=== PATIENT | female | born 1985 | race Caucasian/White ===

== ENCOUNTER 2017-04-27 17:22 | Emergency (ER) | payer BC ==
[2017-04-27 17:43] VITALS: BP 107/61
--- NOTE | 2017-04-27 17:54 | UC ---
Bite Injury/Animal HPI - HPI Summary HPI Summary: complaint of mouse bite on right index finger this morning her cat caught the mouse and she was saving it from her cat and it bit her finger feels slightly swollen and mildy painful hasn't taken any medication for pain washed wound with hydrogen peroxide - History of Current Complaint Chief Complaint: UCBiteInjury Stated Complaint: MOUSE BITE- RT HAND Time Seen by Provider: 04/27/17 17:45 Hx Obtained From: Patient Hx Last Menstrual Period: 04/13/17 - Allergies/Home Medications Allergies/Adverse Reactions: Allergies Allergy/AdvReac Type Severity Reaction Status Date / Time Penicillins Allergy Hives Verified 04/27/17 17:29 seasonal Allergy Congestion Uncoded 04/27/17 17:29 Home Medications: Home Medications Vitamins 1 tab DAILY 04/27/17 [History Confirmed 04/27/17] PMH/Surg Hx/FS Hx/Imm Hx Previously Healthy: Yes - Surgical History Surgical History: Yes Surgery Procedure, Year, and Place: 2002 oral x 2 - Family History Known Family History: Positive: Hypertension - father Negative: Cardiac Disease, Diabetes - Social History Occupation: Employed Full-time Lives: With Family Alcohol Use: Rare Substance Use Type: None Smoking Status (MU): Never Smoked Tobacco - Immunization History Most Recent Influenza Vaccination: 2016 Most Recent Tetanus Shot: UTD Review of Systems Constitutional: Negative Skin: Other Eyes: Negative ENT: Negative Respiratory: Negative Cardiovascular: Negative Gastrointestinal: Negative Genitourinary: Negative Motor: Negative Neurovascular: Negative Musculoskeletal: Negative Neurological: Negative Psychological: Negative All Other Systems Reviewed And Are Negative: Yes Physical Exam Triage Information Reviewed: Yes Appearance: No Pain Distress, Well-Nourished Vital Signs: Initial Vital Signs Temp 99 F 04/27/17 17:31 Pulse 66 04/27/17 17:31 Resp 16 04/27/17 17:31 BP 107/61 04/27/17 17:31 Pulse Ox 100 04/27/17 17:31 Vital Signs Reviewed: Yes Eyes: Positive: Conjunctiva Clear ENT: Positive: Pharynx normal, TMs normal Neck: Positive: No Lymphadenopathy Respiratory: Positive: Lungs clear, Normal breath sounds, No respiratory distress Cardiovascular: Positive: RRR, No Murmur, Pulses Normal Musculoskeletal: Positive: No Edema Neurological: Positive: Alert Psychological Exam: Normal Skin: Positive: Other - right index finger - tiny puncture wounds /edema on end of finger, Bite Injury Course/Dx - Course Course Of Treatment: exam completed. will ttreat with clindamycin and bactrim as advised by -up to date for patients with penicillin allergy. UTD on tetanus. no need for rabies prophylaxis - Differential Dx/Diagnosis Differential Diagnosis/HQI/PQRI: Puncture, Other - animal bite Provider Diagnoses: mouse bite right index finger Discharge - Discharge Plan Condition: Stable Disposition: HOME Prescriptions: Clindamycin Cap(NF) [Clindamycin Cap 300 mg Cap(NF)] 300 mg PO TID #21 cap Sulfamethox/Trimethoprim DS* [Bactrim DS 800/160 TAB*] 1 tab PO BID #14 tab Patient Education Materials: Animal Bite (ED) Referrals: No Primary Care Phys,NOPCP [Primary Care Provider] - [facility] [Outside] Additional Instructions: Please start antibiotic as directed Increase fluids and rest Take acetaminophen or ibuprofen for fever or pain Please review your discharge instructions. If your symptoms do not improve please call your primary care provider or return to urgent care.
== END 2017-04-27 18:28 | disposition home or self-care (01) ==
LOC: UCCORT 17:22
DX: S61.230A Puncture wound without foreign body of right index finger without damage to nail, initial encounter (principal); W53.01XA Bitten by mouse, initial encounter; Y93.9 Activity, unspecified; Y92.9 Unspecified place or not applicable; Z88.0 Allergy status to penicillin
CPT/HCPCS: 99202; G0463

== ENCOUNTER 2017-06-08 10:34 | Emergency (ER) | payer BC ==
[2017-06-08 11:47] VITALS: BP 115/60
--- NOTE | 2017-06-08 12:05 | UC ---
UC General HPI - HPI Summary HPI Summary: 32 year old female with diarrhea. she states that her stools have not been normal for the last 9 days. they are either very loose or liquid. she denies pain, N/V. She does have a lot of gas, bloating and rumbling in her stomach after she eats and has explosive stools. She says the stool is dark brown and odorless. She thinks it looks stringy. About a month ago she was treated with ABX for a mouse bite. She is concerned that she could have Cdiff. Priscila have a similar experience about 10 years ago and was told it was colitis. [ End ] - History of Current Complaint Chief Complaint: UCGI Stated Complaint: DIARRHEA X 1 WEEK Time Seen by Provider: 06/08/17 11:55 Hx Last Menstrual Period: 04/27/17 Onset/Duration: Sudden Onset Timing: Constant Onset Severity: Mild - Allergy/Home Medications Allergies/Adverse Reactions: Allergies Allergy/AdvReac Type Severity Reaction Status Date / Time Penicillins Allergy Hives Verified 06/08/17 11:47 seasonal Allergy Congestion Uncoded 06/08/17 11:47 PMH/Surg Hx/FS Hx/Imm Hx Previously Healthy: Yes - Surgical History Surgical History: Yes Surgery Procedure, Year, and Place: 2002 oral x 2 - Family History Known Family History: Positive: Hypertension - father Negative: Cardiac Disease, Diabetes - Social History Occupation: Employed Full-time Lives: With Family Alcohol Use: None Substance Use Type: None Smoking Status (MU): Never Smoked Tobacco - Immunization History Most Recent Influenza Vaccination: 2015 Most Recent Tetanus Shot: UTD Review of Systems Gastrointestinal: Diarrhea All Other Systems Reviewed And Are Negative: Yes Physical Exam Triage Information Reviewed: Yes Appearance: Well-Appearing, No Pain Distress, Well-Nourished Vital Signs: Initial Vital Signs Temp 98.4 F 06/08/17 11:42 Pulse 59 06/08/17 11:42 Resp 16 06/08/17 11:42 BP 115/60 06/08/17 11:42 Pulse Ox 100 06/08/17 11:42 Vital Signs Reviewed: Yes Eye Exam: Normal ENT Exam: Normal Dental Exam: Normal Neck exam: Normal Neck: Positive: 1 Respiratory Exam: Normal Cardiovascular Exam: Normal Abdominal Exam: Normal Abdomen Description: Positive: Nontender, No Organomegaly, Soft. Negative: CVA Tenderness (R), CVA Tenderness (L), Distended, Guarding Musculoskeletal Exam: Normal Neurological Exam: Normal Psychological Exam: Normal Skin Exam: Normal Course/Dx - Course Course Of Treatment: check for infection and treat if needed and f/u with pcp. if neg work up consider immodium . encouraged PO intake - Differential Dx - Multi-Symptom Provider Diagnoses: diarrhea Discharge - Discharge Plan Condition: Good Disposition: HOME Patient Education Materials: Acute Diarrhea (ED)
== END 2017-06-08 12:48 | disposition home or self-care (01) ==
LOC: UCCORT 10:34
DX: R19.7 Diarrhea, unspecified (principal); Z88.0 Allergy status to penicillin
CPT/HCPCS: 87045; 87046; 87328; 87329; 87493; 87899; 99211; G0463

== ENCOUNTER 2017-06-17 17:33 | Emergency (ER) | payer BC ==
[2017-06-17 17:49] VITALS: BP 109/55
--- NOTE | 2017-06-17 18:35 | RAD ---
INDICATION: Abdominal pain pain. Constipation. COMPARISON: None TECHNIQUE: A single view of the abdomen is submitted. FINDINGS: Bones: There are no acute bony findings. Soft tissues: The soft tissues appear normal. The psoas margins are sharp. Bowel gas pattern: Nondiagnostic . There is moderate stool. Calcifications: There are no abnormal calcifications. Other: None IMPRESSION: NONDIAGNOSTIC BOWEL GAS PATTERN. MODERATE STOOL.
--- NOTE | 2017-06-17 18:52 | UC ---
Abdominal Pain Female HPI - HPI Summary HPI Summary: abdominal discomfort x 2 weeks started with diarrhea for few days , was seen at the urgent care and her pcp . Dx with viral illness, diarrhea has improved but now she is very gassy and not passing gas nor stool mild abdominal pain , no fever, no chills, no nausea or vomiting - History of Current Complaint Chief Complaint: UCGI Stated Complaint: BLOATING,CRAMPING,NO BM X4DAYS Time Seen by Provider: 06/17/17 17:53 Hx Obtained From: Patient Hx Last Menstrual Period: 04/27/17 ?: No Onset/Duration: Gradual Onset, Lasting Weeks - 2, Still Present Timing: Constant Severity Initially: Moderate Severity Currently: Moderate Location: Diffuse Radiates: No Character: Cramping Aggravating Factor(s): Food Alleviating Factor(s): Nothing Associated Signs and Symptoms: Positive: Constipation, Diarrhea. Negative: Diaphoresis, Fever, Chest Pain, Dizzy, Back Pain, Blood in Stool, Urinary Symptoms, Decreased Appetite, Vaginal Bleeding, Vaginal Discharge, Nausea, Vomiting Allergies/Adverse Reactions: Allergies Allergy/AdvReac Type Severity Reaction Status Date / Time Penicillins Allergy Hives Verified 06/17/17 17:49 seasonal Allergy Congestion Uncoded 06/17/17 17:49 Home Medications: Home Medications Multivitamins/Minerals TAB* [Thera M Plus TAB*] 1 tab PO DAILY 06/17/17 [ History Confirmed 06/17/17] PMH/Surg Hx/FS Hx/Imm Hx Previously Healthy: Yes - Surgical History Surgical History: Yes Surgery Procedure, Year, and Place: 2002 oral x 2 - Family History Known Family History: Positive: Hypertension - father Negative: Cardiac Disease, Diabetes - Social History Alcohol Use: None Substance Use Type: None Smoking Status (MU): Never Smoked Tobacco - Immunization History Most Recent Influenza Vaccination: 2016 Most Recent Tetanus Shot: UTD Review of Systems Constitutional: Negative Skin: Negative Eyes: Negative, Diplopia Respiratory: Negative Gastrointestinal: Abdominal Pain Is Patient Immunocompromised?: No All Other Systems Reviewed And Are Negative: Yes Physical Exam Triage Information Reviewed: Yes Appearance: Well-Appearing, No Pain Distress, Well-Nourished Vital Signs: Initial Vital Signs Temp 98.6 F 06/17/17 17:43 Pulse 50 06/17/17 17:43 Resp 14 06/17/17 17:43 BP 109/55 06/17/17 17:43 Pulse Ox 100 06/17/17 17:43 Vital Signs Reviewed: Yes Eyes: Positive: Conjunctiva Clear ENT Exam: Normal ENT: Positive: Normal ENT inspection, Hearing grossly normal, Pharynx normal Neck exam: Normal Neck: Positive: Supple, Nontender, No Lymphadenopathy Respiratory: Positive: Chest non-tender, Lungs clear, Normal breath sounds, No respiratory distress Cardiovascular: Positive: RRR, No Murmur, Pulses Normal Abdomen Description: Positive: Nontender, No Organomegaly, Soft Bowel Sounds: Positive: Present Musculoskeletal Exam: Normal Skin Exam: Normal Abd Pain Female Course/Dx - Differential Dx/Diagnosis Provider Diagnoses: abdominal pain. constipation Discharge - Discharge Plan Condition: Stable Disposition: HOME Patient Education Materials: Constipation (ED), Abdominal Pain (ED) Referrals: Kyra Lorenzo MD [Primary Care Provider] - 7 Days Additional Instructions: increase fluid, increase fiber, may take Mirilax daily x 7 days will check cbc, cmp, amylase and lipase, tsh call the office on Monday for the lab results
[2017-06-18 13:45] LABS: Hematocrit 38 % (35-47); Hemoglobin 13.2 g/dl (12.0-16.0); Mean Corpuscular HGB Conc 34 g/dl (31-36); Mean Corpuscular Hemoglobin 31 pg (27-31); Mean Corpuscular Volume 90 fL (80-97); Mean Platelet Volume 10 um3 (7.4-10.4); Red Blood Count 4.29 10^6/ul (4.0-5.4); Red Cell Distribution Width 12 % (10.5-15); White Blood Count 5.9 10^3/ul (3.5-10.8)
[2017-06-18 13:59] LABS: Albumin 4.7 g/dL (3.2-5.2); BUN/Creatinine Ratio 7.3 (8-20); EGFR African American 103.9 (>60); EGFR Non-African American 80.8 (>60); Total Bilirubin 0.8 mg/dL (0.2-1.0); Total Protein 7.7 g/dL (6.4-8.9)
[2017-06-18 14:11] LABS: TSH (Thyroid Stimulating Horm) 0.56 mcIU/mL (0.34-5.60)
--- NOTE | 2017-06-19 08:32 | UC ---
Progress - Progress Note Progress Note: call patient. cbc/cmp/tsh (-). if worse f/u pcp/er.
== END 2017-06-17 18:55 | disposition home or self-care (01) ==
LOC: UCCORT 17:33
DX: R10.84 Generalized abdominal pain (principal); K59.00 Constipation, unspecified; Z88.0 Allergy status to penicillin
CPT/HCPCS: 36415; 74000; 80053; 82150; 83690; 84443; 85025; 99211; G0463

== ENCOUNTER 2019-08-05 08:49 | Emergency (ER) | payer BC ==
[2019-08-05 09:15] VITALS: BP 102/71
--- NOTE | 2019-08-05 09:35 | UC ---
Throat Pain/Nasal [place]oy HPI - HPI Summary HPI Summary: 34-year-old female who has had cold symptoms and head congestion for more than one week and the past 2 days she's had sinus congestion, sinus pain and postnasal drainage. - History of Current Complaint Chief Complaint: UCGeneralIllness Stated Complaint: UPPER RESPIRATORY CONCERN Time Seen by Provider: 08/05/19 09:16 Hx Obtained From: Patient Hx Last Menstrual Period: 07/07/19 ?: No Onset/Duration: Gradual Onset Severity: Mild Pain Intensity: 5 Cough: Nonproductive Associated Signs & Symptoms: Positive: Sinus Discomfort, Nasal Discharge - Allergies/Home Medications Allergies/Adverse Reactions: Allergies Allergy/AdvReac Type Severity Reaction Status Date / Time Penicillins Allergy Hives Verified 08/05/19 09:11 seasonal Allergy Congestion Uncoded 06/17/17 17:49 PMH/Surg Hx/FS Hx/Imm Hx Previously Healthy: Yes - Surgical History Surgical History: Yes Surgery Procedure, Year, and Place: 2002 oral x 2 - Family History Known Family History: Positive: Hypertension - father Negative: Cardiac Disease, Diabetes - Social History Lives: With Family Alcohol Use: None Substance Use Type: None Smoking Status (MU): Never Smoked Tobacco - Immunization History Most Recent Influenza Vaccination: 2016 Most Recent Tetanus Shot: UTD Review of Systems All Other Systems Reviewed And Are Negative: Yes ENT: Positive: Nasal Discharge, Sinus Congestion, Sinus Pain/Tenderness Respiratory: Positive: Cough - Nonproductive cough. Is Patient Immunocompromised?: No Physical Exam Triage Information Reviewed: Yes Appearance: Well-Appearing, No Pain Distress, Well-Nourished, Other: - Mildly ill-appearing. Vital Signs: Initial Vital Signs Temp 98.3 F 08/05/19 09:10 Pulse 86 08/05/19 09:10 Resp 16 08/05/19 09:10 BP 102/71 08/05/19 09:10 Pulse Ox 99 08/05/19 09:10 Vital Signs Reviewed: Yes Eyes: Positive: Conjunctiva Clear ENT: Positive: Hearing grossly normal, Pharynx normal - Yellow purulent postnasal drainage., Nasal congestion, Nasal drainage - Yellow purulent nasal coryza., TM red - Right tympanic membrane is mildly injected but with good land krishna and light reflex, left tympanic membrane is pearly-watson with good land krishna and light reflex., Sinus tenderness - Tenderness over the maxillary and frontal sinuses., Uvula midline Neck: Positive: Supple, Nontender, No Lymphadenopathy Respiratory: Positive: Lungs clear, Normal breath sounds, No respiratory distress, No accessory muscle use Cardiovascular: Positive: RRR, No Murmur, Pulses Normal, Brisk Capillary Refill Musculoskeletal Exam: Normal Neurological Exam: Normal Psychological Exam: Normal Skin Exam: Normal Throat Pain/Nasal Course/Dx - Course Course Of Treatment: Patient is comfortable here. She is to increase fluids and follow-up with her primary care provider if no improvement. She may take probiotics with her doxycycline. - Differential Dx/Diagnosis Provider Diagnosis: Sinusitis Discharge ED - Sign-Out/Discharge Documenting (check all that apply): Patient Departure All imaging exams completed and their final reports reviewed: No Studies - Discharge Plan Condition: Fair Disposition: HOME Prescriptions: DOXYcycline CAP(*) [DOXYcycline 100MG CAP(*)] 100 mg PO BID 10 Days #20 cap Patient Education Materials: Sinusitis (ED) Forms: *Work Release Referrals: Kyra Lorenzo MD [Primary Care Provider] - Additional Instructions: Increase fluids, no antacids, multivitamins, dairy products 2 hours before you take doxycycline or 2 hours after you take it however take it with food. Definite follow-up with your primary care provider in 4- 5 days if no improvement. - Billing Disposition and Condition Condition: FAIR Disposition: Home
== END 2019-08-05 09:36 | disposition home or self-care (01) ==
LOC: UCCORT 08:49
DX: J32.9 Chronic sinusitis, unspecified (principal); Z88.0 Allergy status to penicillin; Z91.09 Other allergy status, other than to drugs and biological substances
CPT/HCPCS: 99212; G0463

== ENCOUNTER 2019-11-11 11:34 | Emergency (ER) | payer BC ==
--- NOTE | 2019-11-11 12:25 | ED ---
GI/ HPI - HPI Summary HPI Summary: The patient is a 34-year-old female presenting to [facility] emergency department accompanied by mother with a chief complaint of nausea, diarrhea, and lower left -sided abdominal pain onset yesterday afternoon. She reports that one week ago, she finished a three-week liver detox which included herbal supplements for fiber and protein, vegetables, and fruits, as prescribed by her alternative medicine provider. Over the last week, she has been feeling well as she has returned to her normal diet until yesterday afternoon when she began to feel nauseous. Last night, she had soft stools with an episode of about three tablespoons of blood and subsequent spotting. Throughout the night, she continued to experience nausea, but the diarrhea with blood has resolved with a small normal bowel movement this morning. She spoke with her primary care provider this morning and was referred to come here for lab work. On her way into the emergency department, she experienced approximately 5 minutes of sharp left lower quadrant pain that completely subsided. Symptoms are currently rated 3/10 in severity but were rated 8/10 in severity last night. She has not taken any medications for treatment prior to arrival. She denies any fevers or chills. She notes that she follows with a nailing machine operator automatic for IBS, and she has an appointment on 12/11/2019. Past medical history significant for lactose intolerance, celiac disease, colitis, Raynauds, heart murmur. Nonsmoker, occasional alcohol use, no substance use. Medications reviewed. Allergies noted. Home Medications Medication Instructions Recorded Confirmed Type Multivitamins/Minerals TAB* [Thera 1 tab PO DAILY 06/17/17 11/11/19 History M Plus TAB*] Cholecalciferol TAB* [Vitamin D 1,000 unit PO DAILY 11/11/19 11/11/19 History TAB*] Turmeric 400 mg PO DAILY 11/11/19 11/11/19 History - History of Current Complaint Chief Complaint: EDNauseaVomitDiarrh Time Seen by Provider: 11/11/19 12:05 Stated Complaint: ABD PAIN, BLOOD IN STOOL Hx Obtained From: Patient Hx Last Menstrual Period: 07/07/19 Onset/Duration: Started Hours Ago, Still Present - nausea, Resolved - abdominal pain, diarrhea, blood in stool Timing: Lasting Hours Severity: Severe Current Severity: Mild Pain Intensity: 3 Location of Pain: LLQ Pain Characteristics: Sharp Associated Signs and Symptoms: Positive: Nausea, Blood w/Stool, Diarrhea, Abdominal Pain. Negative: Fever, Chills Aggravating Factor(s): Nothing Alleviating Factor(s): Nothing - Allergy/Home Medications Allergies/Adverse Reactions: Allergies Allergy/AdvReac Type Severity Reaction Status Date / Time Penicillins Allergy Hives Verified 11/11/19 11:42 seasonal Allergy Congestion Uncoded 11/11/19 11:42 Home Medications: Home Medications Multivitamins/Minerals TAB* [Thera M Plus TAB*] 1 tab PO DAILY 06/17/17 [ History Confirmed 11/11/19] Cholecalciferol TAB* [Vitamin D TAB*] 1,000 unit PO DAILY 11/11/19 [History Confirmed 11/11/19] Turmeric 400 mg PO DAILY 11/11/19 [History Confirmed 11/11/19] PMH/Surg Hx/FS Hx/Imm Hx Endocrine/Hematology History: Reports: Other Endocrine/Hematological Disorders - Raynaud's Denies: Hx Diabetes Cardiovascular History: Denies: Hx Hypertension GI History: Reports: Hx Irritable Bowel, Other GI Disorders - colitis History: Denies: Hx Renal Disease - Surgical History Surgical History: Yes Surgery Procedure, Year, and Place: 2002 oral x 2 Infectious Disease History: No Infectious Disease History: Denies: Traveled Outside the [place] in Last 30 Days - Family History Known Family History: Positive: Hypertension - father Negative: Cardiac Disease, Diabetes - Social History Alcohol Use: Occasionally Hx Substance Use: No Substance Use Type: Reports: None Hx Tobacco Use: No Smoking Status (MU): Never Smoked Tobacco Review of Systems Negative: Fever, Chills Positive: Abdominal Pain - LLQ, Diarrhea, Nausea, Other - blood in stool All Other Systems Reviewed And Are Negative: Yes Physical Exam - Summary Physical Exam Summary: Appearance: The patient is well-nourished in no acute distress and in no acute pain. Skin: The skin is warm and dry, and skin color reflects adequate perfusion. HEENT: The head is normocephalic and atraumatic. The pupils are equal and reactive. The conjunctivae are clear and without drainage. Nares are patent and without drainage. Mouth reveals moist mucous membranes, and the throat is without erythema and exudate. The external ears are intact. The ear canals are patent and without drainage. The tympanic membranes are intact. Neck: The neck is supple with full range of motion and non-tender. There are no carotid bruits. There is no neck vein distension. Respiratory: Chest is non-tender. Lungs are clear to auscultation and breath sounds are symmetrical and equal. Cardiovascular: Heart is regular rate and rhythm. There is no murmur or rub auscultated. There is no peripheral edema and pulses are symmetrical and equal. Abdomen: The abdomen is soft with mild tenderness in the bilateral left upper and lower quadrants. There are normal bowel sounds heard in all four quadrants and there is no organomegaly palpated. Musculoskeletal: There is no back tenderness noted. Extremities are non-tender with full range of motion. There is good capillary refill. There is no peripheral edema or calf tenderness elicited. Neurological: Patient is alert and oriented to person, place and time. The patient has symmetrical motor strength in all four extremities. Cranial nerves are grossly intact. Deep tendon reflexes are symmetrical and equal in all four extremities. Psychiatric: The patient has an appropriate affect and does not exhibit any anxiety or depression. Triage Information Reviewed: Yes Vital Signs On Initial Exam: Initial Vitals Temp Pulse Resp BP Pulse Ox 98.3 F 53 19 125/68 98 11/11/19 11:37 11/11/19 11:37 11/11/19 11:37 11/11/19 11:37 11/11/19 11:37 Vital Signs Reviewed: Yes Procedures - Sedation Patient Received Moderate/Deep Sedation with Procedure: No Diagnostics - Vital Signs Vital Signs Temp Pulse Resp BP Pulse Ox 11/11/19 11:37 98.3 F 53 19 125/68 98 - Laboratory Result Diagrams: 11/11/19 12:42 11/11/19 12:42 Lab Statement: Any lab studies that have been ordered have been reviewed, and results considered in the medical decision making process. Re-Evaluation - Re-Evaluation First Eval Re-Evaluation Time: 14:25 Comment: We discussed all results and plan for discharge. GIGU Course/Dx - Course Course Of Treatment: Ms. Jeff's labs were normal as were her vitals. She likely has some irritation after the reintroduction of foods at the end of her elimination diet. She is in no acute danger and I will let her GI doc's figure this out. - Diagnoses Provider Diagnoses: Abdominal pain Discharge ED - Sign-Out/Discharge Documenting (check all that apply): Patient Departure - Patient will be discharged home. - Discharge Plan Condition: Good Disposition: HOME Patient Education Materials: Abdominal Pain (ED) Referrals: Kyra Lorenzo MD [Primary Care Provider] - If Needed Additional Instructions: Follow up with your nailing machine operator automatic as scheduled. Follow up with your primary care provider as needed. Return to the emergency department for any new or worsening symptoms. - Billing Disposition and Condition Condition: GOOD Disposition: Home - Attestation Statements Document Initiated by Phil: Yes Documenting Scribe: Chula Stephens Provider For Whom Phil is Documenting (Include Credential): Dr. Fernando Donato MD Scribe Attestation: Chula Zamudio scribed for Dr. Fernando Donato MD on 11/11/19 at 1949. Scribe Documentation Reviewed: Yes Provider Attestation: The documentation as recorded by the Chula voss accurately reflects the service I personally performed and the decisions made by me, Dr. Fernando Donato MD Status of Scribe Document: Viewed
[2019-11-11 12:52] LABS: ABS Eosinophils 0.4 10^3/ul (0-0.6); ABS Lymphocytes 1.2 10^3/ul (1.0-4.8); ABS Monocytes 0.5 10^3/ul (0-0.8); ABS Neutrophils 5.4 10^3/ul (1.5-7.7); Eosinophil % 4.8 %; Hematocrit 40 % (35-47); Hemoglobin 13.8 g/dL (12.0-16.0); Lymphocyte % 16.2 %; Mean Corpuscular HGB Conc 34 g/dL (31-36); Mean Corpuscular Hemoglobin 31 pg (27-31); Mean Corpuscular Volume 91 fL (80-97); Mean Platelet Volume 8.4 fL (7.4-10.4); Nucleated Red Blood Cells % 0.1; Platelet Count 293 10^3/uL (150-450); Red Blood Count 4.42 10^6 /uL (3.70-4.87); Red Cell Distribution Width 13 % (10-15); White Blood Count 7.6 10^3/uL (3.5-10.8)
[2019-11-11 13:09] VITALS: BP 117/65
[2019-11-11 13:19] LABS: ALT 16 U/L (7-52); AST 16 U/L (13-39); Albumin 4.6 g/dL (3.2-5.2); Albumin/Globulin Ratio 1.6 (1-3); Alkaline Phosphatase 57 U/L (34-104); Anion Gap 5 mmol/L (2-11); BUN/Creatinine Ratio 18.8 (8-20); Blood Urea Nitrogen 15 mg/dL (6-24); C Reactive Protein < 1.00 mg/L (<8.01); CO2 Carbon Dioxide 28 mmol/L (22-32); Calcium 9.7 mg/dL (8.6-10.3); Chloride 105 mmol/L (101-111); EGFR African American 99.4 (>60); EGFR Non-African American 82.1 (>60); Globulin 2.8 g/dL (2-4); Glucose 90 mg/dL (70-100); Potassium 3.8 mmol/L (3.5-5.0); Sodium 138 mmol/L (135-145); Total Protein 7.4 g/dL (6.4-8.9)
== END 2019-11-11 14:30 | disposition home or self-care (01) ==
LOC: ED 11:34
DX: R10.9 Unspecified abdominal pain (principal); Z88.0 Allergy status to penicillin
CPT/HCPCS: 36415; 80053; 83605; 85025; 86140; 99282